=== PATIENT | female | born 1980 | race Two or more races ===

== ENCOUNTER 2025-07-04 08:09 | Day surgery (SDC) | payer MEDICAID ==
[2025-07-04] VITALS (9 sets, daily range): BP systolic 86–95; BP diastolic 59–71; PULSE 50–87; RESP 10–16; TEMP 98; O2SAT 97–100
[~2025-07-04] VITALS: Ht 162.6 cm; Wt 56.7 kg
[~2025-07-04 08:09] MED LIST: ACET500C43 PO; AMIT25TA20 PO; APRE30TA PO; GABA-1250 PO; HYDR-4798 PO; IBUP-1456 PO; IODIXANOL 320MG/ML 100ML BTL IV ONE; LIDO5PAD12 EX; MAGN400C4 PO; METH-1182 PO; SUMA100T15 PO; TOPI1CAP20 PO; ZOLP10TA6 PO
[2025-07-04] MEDS ORDERED: IODIXANOL 320MG/ML 100ML BTL IV ONE (09:42)
[2025-07-04] MEDS ORDERED: HEPARIN SODIUM (PORCINE) 5000 UNITS/ML 1ML VIAL ONE (10:05)
[2025-07-04] MEDS ORDERED: MIDAZOLAM HCL 2MG/2ML 2ml VIAL (1mg/ml) ONE ×2 (10:05→10:36)
[2025-07-04] MEDS ORDERED: ANGIOMAX 250 MG VIAL IV ONE (10:05)
[2025-07-04] MEDS ORDERED: fentaNYL CITRATE 100 MCG/2 ML VL ONE (10:05)
[2025-07-04] MEDS ORDERED: VERAPAMIL 2.5MG/ML INJ 2ML VIAL IV ONE (10:05)
[2025-07-04] MEDS ORDERED: SODIUM CHL 0.9% 0 ML ONE (10:05)
[2025-07-04] MEDS ORDERED: LIDOCAINE 2%HCL (LOCAL ANESTH.) INJ 20ML MDV ONE (10:06)
--- NOTE | 2025-07-04 10:58 | DVHOP2 ---
Operative Report - 2 Report Details Date: 07/04/25 Preop Diagnosis: CAD Postop Diagnosis: Atypical chest pain Surgeon: Rima Flores MD Anesthesiologist: Conscious sedation Anesthesia: Mac, Local Consent: The patient was informed of the risks and benefits of the procedure. These include but are not limited to complications of anesthesia, postoperative infection, incomplete relief of symptoms, recurrence of symptoms, damage to blood vessels, nerves and tendons, deep venous thrombosis, pulmonary embolism and possible need for repeat surgery in the future. Complications: No complications Findings: Normal coronary arteries, arterial spasm of radial artery Indications for Surgery: Chest pain syncope Name of Procedure Performed Left heart catheterization. Bilateral cine coronary angiography. Left ventriculography. Procedure Details Procedure Details: Prior local anesthesia with 2% lidocaine to the right full informed consent obtained the patient was prepped and draped in usual fashion under fluoroscopic and ultrasound guidance we placed a sheath into the radial artery. We then placed a multipurpose catheter to cannulate the LV and Right coronary artery. There was development of significant spasm in the radial artery. We could not manipulate the catheter given severe pain and spasm. We then changed strategies and placed a six [place] sheath into the femoral artery under fluoroscopic and ultrasound guidance. We then placed Clement catheter to the left main and c ompleted the procedure. A Perclose device was then used to seal the artery. No complications. Hemodynamics: Aortic blood pressure was 110/70. End-diastolic pressure was five. There was no gradient across the aortic valve on pullback. Coronary anatomy: The RCA is a large vessel it is normal in its proximal mid and distal segments. The PDA and posterolateral branches are normal. Left main is large and normal. Left anterior descending is large and normal. The circumflex is large and normal. Ventriculography in the BAE projection shows an EF of 55%. Impression: Normal left ventricular end-diastolic pressure at rest. Normal ejection fraction. No significant CAD. Recommendations: Medical therapy is warranted continue risk factor modificati ons. Condition Good Disposition Home Date of Service: Jul 04, 2025 Billing Provider: RIMA FLORES Sr., MD Cardiology Common Codes: 43365-RCARTHH INP/OBS CARE (High) Cardiology Procedure Codes: 24848-XVMX HEART CATH W/INTRA INJ RIMA FLORES Sr., MD Jul 04, 2025 10:58
[2025-07-04] MEDS: HYDROmorphone HCL 2 MG/ML VL/or syr IV ONE (12:40)
== END 2025-07-04 13:50 | disposition home or self-care (01) ==
LOC: CATH 08:09
PROVIDERS: ATTEND Internal Medicine
DX: I25.10 Atherosclerotic heart disease of native coronary artery without angina pectoris (principal); F17.210 Nicotine dependence, cigarettes, uncomplicated; Z79.899 Other long term (current) drug therapy
CPT/HCPCS: 93458; C1894; J1644; J2250; J3010; J7030; Q9967; 99152; 99153